=== PATIENT | female | born 1990 | race Caucasian/White ===

== ENCOUNTER → 2020-02-25 11:59 | Outpatient (CLI) | payer OTHER, SELFPAY ==
--- NOTE | 2020-02-25 | DI.US.S_ITS ---
PROCEDURE: US PELVIC COMPLETE INDICATIONS: RIGHT LOWER QUADRANT PAIN TECHNIQUE: Real-time scanning was performed of the pelvic organs, with image documentation. Additional endovaginal scanning was necessary due to incomplete visualization of the adnexal and endometrial structures by transabdominal scanning. COMPARISON: [facility], US, US PELVIC COMPLETE, 01/14/2020, 13:48. FINDINGS: Transabdominal scanning: A mild amount of free pelvic fluid is seen, which is considered to be within physiologic limits. Limited scanning through the kidneys shows no hydronephrosis. Endovaginal scanning: Uterus: Uterus is normal in size at 7.2 x 3.3 x 3.6 cm. The endometrium measures 4 mm in combined thickness. Ovaries: The right ovary measures 5.1 x 4.3 x 4.3 cm. There is a large complex cyst seen within the right ovary that measures 4.5 x 3.2 x 4.1 cm. The left ovary measures 4.4 x 2.3 x 2.5 cm. Multiple cysts are seen within the left ovary, which are considered to be within physiologic limits. Arterial waveforms are confirmed to each ovary. IMPRESSION: There is a 4.5 cm complex right ovarian cyst seen, which most likely represents a hemorrhagic cyst. At clinical discretion, a followup pelvic ultrasound is suggested in 6 weeks to assure resolution/ improvement. Dictated by: Vish Cuevas M.D. on 02/25/2020 at 15:26 Approved by: Vish Cuevas M.D. on 02/25/2020 at 15:29
== END ==
PROVIDERS: PCP Physician Assistant Medical; Referring Provider Physician Assistant Medical; Visit Provider Obstetrics & Gynecology
DX: R10.31 Right lower quadrant pain (principal); N83.291 Other ovarian cyst, right side; Z87.42 Personal history of other diseases of the female genital tract
CPT/HCPCS: 76830; 76856

== ENCOUNTER → 2020-04-07 12:42 | Outpatient (CLI) | payer OTHER, SELFPAY ==
--- NOTE | 2020-04-07 | DI.US.S_ITS ---
PROCEDURE: US PELVIC COMPLETE INDICATIONS: 6 week follow up to prior ultrasound TECHNIQUE: Real-time scanning was performed of the pelvic organs, with image documentation. Additional endovaginal scanning was necessary due to incomplete visualization of the adnexal and endometrial structures by transabdominal scanning. COMPARISON: [facility], US, US PELVIC COMPLETE, 01/14/2020, 13:48. [facility], US, US PELVIC COMPLETE, 02/25/2020, 12:15. FINDINGS: Transabdominal scanning: Limited scanning through the kidneys shows no hydronephrosis. No pathologic free abdominal or pelvic fluid. Endovaginal scanning: Uterus: Uterus is normal in size at 7.3 x 3.4 x 5.4 cm. The endometrium measures 3 mm in combined thickness. Ovaries: Left ovary is normal in appearance measuring 3.1 x 1.9 x 2.1 cm. No suspicious left-sided ovarian/adnexal mass lesions. The right ovary measures 6.2 x 6.0 x 5.3 cm. There is a cyst with thin internal septations and debris within the right ovary measuring 5.3 x 3.9 x 4.6 cm. Vascular flow within the right ovary is present. No suspicious solid ovarian mass lesions. Accounting for slight differences in imaging technique, findings are relatively stable. IMPRESSION: 1. Pelvic ultrasound without acute sonographic abnormalities. 2. Stable appearance of complicated right ovarian cyst with thin internal septations and echogenic debris which is favored to represent a hemorrhagic cyst. However, it is stable to slightly larger in size. Consider further evaluation with pelvic MRI. Dictated by: Arturo Roth M.D. on 04/07/2020 at 13:44 Approved by: Arturo Roth M.D. on 04/07/2020 at 13:58
== END ==
PROVIDERS: PCP Physician Assistant Medical; Referring Provider Physician Assistant Medical; Visit Provider Obstetrics & Gynecology
DX: N83.291 Other ovarian cyst, right side (principal)
CPT/HCPCS: 76856

== ENCOUNTER → 2021-01-17 14:20 | Outpatient (CLI) | payer OTHER, MEDICAID, SELFPAY | PROVIDERS: PCP Physician Assistant Medical; Visit Provider Physician Assistant Medical | DX: J02.9 Acute pharyngitis, unspecified (principal) | CPT/HCPCS: 87070 ==

== ENCOUNTER → 2021-04-04 10:00 | Outpatient (CLI) | payer OTHER, MEDICAID, SELFPAY ==
[2021-04-04 19:55] LABS: Add Manual Diff / Slide Review NO; Basophils Absolute Auto 0 /uL (0-100); Basophils Percent Auto 0.6 % (0-2); Eosinophils Absolute Auto 100 /uL (0-450); Eosinophils Percent Auto 1.3 % (2-4); Hematocrit 42.1 % (36-46); Hemoglobin 14.1 g/dL (12.0-16.0); Lymphocytes Absolute Auto 2300 /uL (1100-4500); Mean Corpuscular HGB Conc 33.6 % (30-36); Mean Corpuscular Volume 92.4 fL (80-100); Monocytes Absolute Auto 400 /uL (0-900); Monocytes Percent Auto 7.6 % (3-14); Neutrophils Absolute Auto 3000 /uL (1500-7000); Neutrophils Percent Auto 51.5 % (50-75); Platelet Count 253 X10^3/uL (150-400); Red Blood Cell Count 4.56 X10^6/uL (4.0-5.2); Red Cell Distribution Width 12.5 % (11.6-14.8); White Blood Cell Count 5.8 X10^3/uL (4.5-11.0)
[2021-04-04 20:07] LABS: Alanine Aminotransferase 23 IU/L (<35); Albumin 3.8 g/dL (3.5-5.0); Albumin Globulin Ratio 1.4 (1.0-2.8); Alkaline Phosphatase 67 U/L (38-126); Aspartate Aminotransferase 41 IU/L (14-36); BUN Creatinine Ratio 11.9 (6-22); Bilirubin Total 0.6 mg/dL (0.2-1.3); Blood Urea Nitrogen 12 mg/dL (7-17); Calcium 9.6 mg/dL (8.4-10.2); Carbon Dioxide 27 mmol/L (22-32); Chloride 106 mmol/L (98-107); Cholesterol 139 mg/dL (140-199); Estimated Glomerular Filt Rate > 60.0 mL/min (>60); Globulin 2.7 g/dL (1.7-4.1); Glucose 87 mg/dL (70-100); HDL Cholesterol 63 mg/dL (40-60); HEMOLYSIS < 15 (0-50); LDL Cholesterol Calculated 55 mg/dL (<100); Potassium 4.1 mmol/L (3.4-5.1); Sodium 139 mmol/L (137-145); Total Protein 6.5 g/dL (6.3-8.2); Triglycerides 103 mg/dL (35-150)
[2021-04-04 20:29] LABS: TSH w/ Reflex to FT4 2.61 uIU/mL (0.47-4.68)
== END ==
PROVIDERS: PCP Physician Assistant Medical; Visit Provider Physician Assistant Medical
DX: J02.9 Acute pharyngitis, unspecified (principal); K29.60 Other gastritis without bleeding; K29.70 Gastritis, unspecified, without bleeding; R53.83 Other fatigue
CPT/HCPCS: 80053; 80061; 84443; 85025

== ENCOUNTER → 2021-04-06 12:08 | Outpatient (CLI) | payer OTHER, MEDICAID, SELFPAY ==
--- NOTE | 2021-04-06 | DI.US.S_ITS ---
PROCEDURE: US PELVIC COMPLETE INDICATIONS: HX OV CYSECTOMY TECHNIQUE: Real-time scanning was performed of the pelvic organs, with image documentation. Additional endovaginal scanning was necessary due to incomplete visualization of the adnexal and endometrial structures by transabdominal scanning. COMPARISON: [facility], , US PELVIC COMPLETE, 04/07/2020, 12:53. FINDINGS: Uterus: Uterus is normal in size at 7.4 x 3.4 x 4.1 cm. The endometrium measures 4.4 mm in combined thickness. Ovaries: Normal ovaries measuring 1.7 x 1.1 x 1.4 cm on the right and 2.7 x 2.0 x 2.0 cm on the left. No pathologic ovarian cysts seen. Other: No pathologic free abdominal or pelvic fluid. IMPRESSION: Normal pelvic ultrasound. Dictated by: Mitch Mar [facility] Interpreted: Goldy Velazco MD on 04/06/2021 at 12:59 Transcribed by: GAURANG on 04/06/2021 at 13:01 Approved by: Jurgen Velazco M.D. on 04/08/2021 at 7:43
== END ==
PROVIDERS: PCP Physician Assistant Medical; Referring Provider Obstetrics & Gynecology; Visit Provider Obstetrics & Gynecology
DX: Z98.890 Other specified postprocedural states (principal); Z87.42 Personal history of other diseases of the female genital tract
CPT/HCPCS: 76830; 76856

== ENCOUNTER → 2021-04-12 11:47 | Outpatient (CLI) | payer OTHER, MEDICAID, SELFPAY ==
[2021-04-15 11:28] LABS: Interpretation Negative (Negative)
== END ==
PROVIDERS: PCP Physician Assistant Medical; Visit Provider Physician Assistant Medical
DX: K29.60 Other gastritis without bleeding (principal); K29.70 Gastritis, unspecified, without bleeding; R10.9 Unspecified abdominal pain
CPT/HCPCS: 81002; 83013

== ENCOUNTER → 2022-03-21 10:34 | Outpatient (CLI) | payer OTHER, MEDICAID, SELFPAY ==
[2022-03-21 20:01] LABS: Add Manual Diff / Slide Review NO; Basophils Absolute Auto 0 /uL (0-100); Basophils Percent Auto 0.9 % (0-2); Eosinophils Absolute Auto 100 /uL (0-450); Hematocrit 46.1 % (36-46); Hemoglobin 15.6 g/dL (12.0-16.0); Lymphocytes Absolute Auto 2000 /uL (1100-4500); Lymphocytes Percent Auto 38.3 % (25-40); Mean Corpuscular HGB Conc 33.9 % (30-36); Mean Corpuscular Hemoglobin 31.1 PG (26-34); Mean Corpuscular Volume 91.8 fL (80-100); Monocytes Absolute Auto 500 /uL (0-900); Neutrophils Absolute Auto 2600 /uL (1500-7000); Neutrophils Percent Auto 49.8 % (50-75); Platelet Count 260 X10^3/uL (150-400); Red Blood Cell Count 5.02 X10^6/uL (4.0-5.2); Red Cell Distribution Width 12.8 % (11.6-14.8); White Blood Cell Count 5.1 X10^3/uL (4.5-11.0)
[2022-03-21 20:20] LABS: Alanine Aminotransferase 13 IU/L (<35); Albumin 4.5 g/dL (3.5-5.0); Albumin Globulin Ratio 1.5 (1.0-2.8); Alkaline Phosphatase 83 U/L (38-126); Aspartate Aminotransferase 31 IU/L (14-36); BUN Creatinine Ratio 11.3 (6-22); Bilirubin Total 1.3 mg/dL (0.2-1.3); Blood Urea Nitrogen 13 mg/dL (7-17); Calcium 9.6 mg/dL (8.4-10.2); Carbon Dioxide 27 mmol/L (22-32); Chloride 103 mmol/L (98-107); Cholesterol 178 mg/dL (140-199); Estimated Glomerular Filt Rate > 60 mL/min (>60); Gamma Glutamyl Transpeptidase 28 U/L (12-43); Glucose 89 mg/dL (70-100); HDL Cholesterol 54 mg/dL (40-60); HEMOLYSIS < 15 (0-50); LDL Cholesterol Calculated 112 mg/dL (<100); Potassium 4.3 mmol/L (3.4-5.1); Sodium 139 mmol/L (137-145); Total Protein 7.5 g/dL (6.3-8.2); Triglycerides 60 mg/dL (35-150)
[2022-03-21 20:46] LABS: TSH w/ Reflex to FT4 1.59 uIU/mL (0.47-4.68)
== END ==
PROVIDERS: PCP Physician Assistant Medical; Visit Provider Physician Assistant Medical
DX: F41.9 Anxiety disorder, unspecified (principal); F98.8 Other specified behavioral and emotional disorders with onset usually occurring in childhood and adolescence; K29.70 Gastritis, unspecified, without bleeding; R10.31 Right lower quadrant pain; R53.83 Other fatigue; R74.8 Abnormal levels of other serum enzymes
CPT/HCPCS: 80053; 80061; 82977; 84443; 85025

== ENCOUNTER → 2022-03-28 12:13 | Outpatient (CLI) | payer OTHER, MEDICAID, SELFPAY ==
--- NOTE | 2022-03-28 | DI.US.S_ITS ---
PROCEDURE: US PELVIC COMPLETE INDICATIONS: abdominal pain/elevated LFT's TECHNIQUE: Real-time scanning was performed of the pelvic organs, with image documentation. Additional endovaginal scanning was necessary due to incomplete visualization of the adnexal and endometrial structures by transabdominal scanning. COMPARISON: [facility], US, US PELVIC COMPLETE, 04/06/2021, 12:29. FINDINGS: Uterus: Uterus is anteverted and normal in size at 7.3 x 2.6 x 3.6 cm. The myometrium is homogeneous. The endometrium measures 5.3 mm combined thickness. Normal myometrial vascularity. Ovaries: The right ovary measures 3.1 x 2.4 x 1.8 cm, with a calculated ovarian volume of 7.1 cc. The left ovary measures 3.9 x 2.6 x 2.5 cm, with a calculated ovarian volume of 13.7 cc. The ovaries have a normal sonographic appearance. There are less than 12 follicles on the right ovary. The left ovary demonstrates greater than 12 follicles measuring 1 cm and less. No adnexal masses are seen. Other: No pathologic free abdominal or pelvic fluid. IMPRESSION: 1. Normal uterus and right ovary. No explanation for right adnexal pain. 2. Mildly enlarged and multi follicular left ovary. In the absence of hormonal/lab abnormalities, this is likely physiologic. In the appropriate clinical setting, this may indicate polycystic ovarian syndrome. Clinical correlation is recommended. We strive to produce accurate, complete, and clear reports of imaging services. To assist us in improving patient care, this report was composed using standard report templates and voice recognition software. Therefore, it may contain abnormal punctuation, insertions and/or omissions. Occasional wrong-word or sound-alike substitutions may occur. Though we review the report and make efforts to correct it, we do recommend that the report be read carefully in proper context to recognize any text inaccuracies. Dictated by: Chaz Flynn M.D. on 03/29/2022 at 9:01 Approved by: Chaz Flynn M.D. on 03/29/2022 at 9:18
== END ==
PROVIDERS: PCP Physician Assistant Medical; Referring Provider Obstetrics & Gynecology; Visit Provider Obstetrics & Gynecology
DX: R10.2 Pelvic and perineal pain (principal); Z87.42 Personal history of other diseases of the female genital tract; Q50.39 Other congenital malformation of ovary; R79.89 Other specified abnormal findings of blood chemistry
CPT/HCPCS: 76830; 76856

== ENCOUNTER → 2022-09-25 09:47 | Outpatient (CLI) | payer OTHER, MEDICAID, SELFPAY ==
--- NOTE | 2022-09-25 | DI.US.S_ITS ---
PROCEDURE: US OB >= 14 WEEKS FETUS INDICATIONS: 20 WEEK ANATOMY SCAN OUTSIDE/PRIOR DATING DATA: Last menstrual period (LMP): 04/18/2022. LMP-based estimated date of delivery (SANTIAGO): 01/23/2023. First dating scan (date and location): 06/13/2022. Estimated date of delivery (SANTI[place]O) from first dating scan: 01/23/2023. TECHNIQUE: Real-time scanning was performed of the fetus, with image documentation and biometric measurements. Endovaginal scanning: Not performed COMPARISON: [facility], [facility], US OB FOLLOW UP, 06/25/2022, 11:40. FINDINGS: General: A single living intrauterine gestation is present. Presentation: Vertex. Placenta: Placental position is anterior , without previa. Amniotic fluid index: 10.8 cm, normal range is 5-24 cm. Single deepest vertical pocket is 4.8 cm. heart rate: 160 beats per minute. Maternal cervical canal: 3.4 cm long. Normal lower limit is 2.5 cm. biometrics: Biparietal diameter: 4.6 centimeters, 20 weeks 0 days Head circumference: 16.9 centimeters, 19 weeks 4 days Abdominal circumference: 15.0 centimeters, 20 weeks 2 days Femur length: 3.5 centimeters, 21 weeks 1 day estimated gestational age: 20 weeks 1 day Composite gestational age from present scan: 20 weeks 2 days Estimated weight and percentile: 360 grams, 68th percentile Anatomic survey: Neuro: Ventricles are non-dilated at less than 10 mm. Cisterna magna is normal at 3-11 mm. Cerebellum is normal in size and morphology. Nuchal skin fold: Normal at less than 6 mm between 14-21 weeks gestational age. Face: Nose and lips, facial profile are normal. Spine: No evidence for spina bifida. Heart: 4-chambered heart is present, with normal ventricular outflow tracts. Diaphragm: Diaphragm is intact. Stomach: Left-sided stomach is present. Kidneys: No hydronephrosis. Normal is less than 5 mm in 2nd trimester, less than 7 mm in 3rd trimester. Cord: 3-vessel cord has orthotopic insertion. Bladder: Normal in size. Extremities: All 4 extremities identified. IMPRESSION: 1. Single living intrauterine . 2. Normal 2nd trimester anatomy survey. No anomalies detected at this time. We strive to produce accurate, complete, and clear reports of imaging services. To assist us in improving patient care, this report was composed using standard report templates and voice recognition software. Therefore, it may contain abnormal punctuation, insertions and/or omissions. Occasional wrong-word or sound-alike substitutions may occur. Though we review the report and make efforts to correct it, we do recommend that the report be read carefully in proper context to recognize any text inaccuracies. Dictated by: Baron Bermeo M.D. on 09/27/2022 at 12:25 Approved by: Baron Bermeo M.D. on 09/27/2022 at 12:35
== END ==
PROVIDERS: PCP Physician Assistant Medical; Referring Provider Obstetrics & Gynecology; Visit Provider Obstetrics & Gynecology
DX: Z34.82 Encounter for supervision of other normal pregnancy, second trimester (principal); Z3A.20 20 weeks gestation of pregnancy
CPT/HCPCS: 76811

== ENCOUNTER → 2023-05-07 08:58 | Outpatient (CLI) | payer OTHER, MEDICAID, SELFPAY | PROVIDERS: PCP Physician Assistant Medical; Visit Provider Physician Assistant Medical | DX: N91.2 Amenorrhea, unspecified (principal); R30.0 Dysuria | CPT/HCPCS: 81002; 81025; 87086 ==